=== PATIENT | male | born 1940 | race Caucasian/White ===

== ENCOUNTER → 2019-03-28 19:37 | Emergency (ER) | payer MEDICARE ==
[2019-03-28 19:47] VITALS: BP 150/86
--- NOTE | 2019-03-28 20:21 | ED ---
Skin Complaint - HPI Summary HPI Summary: 78 yo male presents to [facility] with tick bite to left nipple. He tells me that he is confident the tick was not attached this morning. [place] has been working outdoors a lot today, thinks that is when he acquired the tick. He tried to remove it at home, but a piece of the tick remained embedded within the skin. He is concerned about lyme disease. Says the tick was not engorged. He has not other complaints at this time. - History of Current Complaint Chief Complaint: EDGeneral Time Seen by Provider: 03/28/19 20:15 Stated Complaint: TICK ON LEFT BREAST PER PT Hx Obtained From: Patient Timing: Constant Onset Severity: Mild Current Severity: Mild Pain Intensity: 3 Pain Scale Used: 0-10 Numeric - Allergy/Home Medications Allergies/Adverse Reactions: Allergies Allergy/AdvReac Type Severity Reaction Status Date / Time Sulfa (Sulfonamide Allergy Unknown Verified 03/28/19 19:47 Antibiotics) Reaction Details PMH/Surg Hx/FS Hx/Imm Hx Cardiovascular History: Reports: Hx Hypertension Respiratory History: Reports: Hx Chronic Obstructive Pulmonary Disease (COPD) Infectious Disease History: No Infectious Disease History: Denies: Traveled Outside the [place] in Last 30 Days - Family History Known Family History: Positive: Unknown - Social History Occupation: Retired Lives: With Family Alcohol Use: Occasionally Substance Use Type: Reports: None Smoking Status (MU): Heavy Every Day Tobacco Smoker Type: Cigarettes Review of Systems Constitutional: Negative Cardiovascular: Negative Respiratory: Negative Skin: Other - Tick bite left nipple Neurological: Negative Psychological: Normal All Other Systems Reviewed And Are Negative: Yes Physical Exam - Summary Physical Exam Summary: GENERAL: NAD. WDWN. No pain distress. SKIN: LEFT NIPPLE: 1 o'clock position there is a 3mm diameter of mild erythema and edema with central 1mm area of superficial skin loss. No streaking, bleeding , or drainage. CHEST: No accessory muscle use. Breathing comfortably and in no distress. CV: Pulses intact. Cap refill <2seconds NEURO: Alert. PSYCH: Age appropriate behavior. Triage Information Reviewed: Yes Vital Signs On Initial Exam: Initial Vitals Temp Pulse Resp BP Pulse Ox 97.7 F 84 16 150/86 97 03/28/19 19:40 03/28/19 19:40 03/28/19 19:40 03/28/19 19:40 03/28/19 19:40 Vital Signs Reviewed: Yes Diagnostics - Vital Signs Vital Signs Temp Pulse Resp BP Pulse Ox 03/28/19 19:40 97.7 F 84 16 150/86 97 - Laboratory Lab Statement: Any lab studies that have been ordered have been reviewed, and results considered in the medical decision making process. Course/Dx - Course Course Of Treatment: Educated pt about ticks and lyme disease. There is a pin- point tick part embedded within the skin. Advised against "digging" for this as attempting to remove this part will likely create more risk for infection/ injury and the piece will not cause any harm/lyme. - Diagnoses Provider Diagnoses: Tick bite Discharge - Sign-Out/Discharge Documenting (check all that apply): Patient Departure Patient Received Moderate/Deep Sedation with Procedure: No - Discharge Plan Condition: Stable Disposition: HOME Patient Education Materials: Lyme Disease (ED), Tick Bite (ED) Referrals: Peter Hernandez MD [Primary Care Provider] - Additional Instructions: If you develop a fever, shortness of breath, chest pain, new or worsening symptoms - please call your PCP or go to the ED immediately. Your blood pressure was high at todays visit. Please see your primary provider within 4 weeks for recheck and re-evaluation. TICK BITE: You have been bitten by a tick. Once the tick is removed, these "bites" usually cause no problems. Tick fever, tick paralysis, [place] Spotted fever, and Lyme disease are uncommon -- but you should mention this tick bite to your doctor if you develop unusual symptoms in the next several weeks. If you develop any of the following, please see your physician promptly: (1) Fever, chills, or generalized malaise associated with a headache. (2) A red round area at the site of the bite (or elsewhere) (3) Joint pain, joint swelling or generalized weakness. (4) Redness, swelling, or drainage at the site of the bite. - Billing Disposition and Condition Condition: STABLE Disposition: Home
== END | disposition home or self-care (01) ==
LOC: ED 19:37
DX: S20.162A Insect bite (nonvenomous) of breast, left breast, initial encounter (principal); W57.XXXA Bitten or stung by nonvenomous insect and other nonvenomous arthropods, initial encounter; Y92.9 Unspecified place or not applicable; Z88.2 Allergy status to sulfonamides; I10 Essential (primary) hypertension; J44.9 Chronic obstructive pulmonary disease, unspecified; F17.210 Nicotine dependence, cigarettes, uncomplicated
CPT/HCPCS: 99281

== ENCOUNTER 2024-09-11 09:57 | Inpatient (IN) ==
[2024-09-11 10:53] LABS: ABS Basophils 0.1 10^3/uL (0.0-0.1); ABS Eosinophils 0.1 10^3/uL (0.0-0.5); ABS Lymphocytes 1.4 10^3/uL (1.0-4.8); ABS Monocytes 0.5 10^3/uL (0.0-1.1); ABS Neutrophils 3.6 10^3/uL (1.5-7.6); ABS Nucleated RBC 0.01 10^3/ul; Eosinophil % 2.4 %; Hematocrit 44.3 % (38-53); Hemoglobin 14.7 g/dL (13.2-16.3); Lymphocyte % 24.7 %; Mean Corpuscular Hemoglobin 29.5 pg (27-33); Mean Corpuscular Hgb Conc 33.2 g/dL (31-36); Mean Platelet Volume 9.1 fL (7.5-11.2); Nucleated Red Blood Cells % 0.2 %/100WBC (0.0-0.8); Platelet Count 200 10^3/uL (150-450); Red Blood Count 4.97 10^6/uL (4.06-5.63); Red Cell Distribution Width 14.2 % (12-17); White Blood Count 5.7 10^3/uL (3.6-10.2)
[2024-09-11 11:02] LABS: INR 1.25 (0.85-1.14)
[2024-09-11 11:27] LABS: Albumin 4.1 g/dL (3.2-5.2); Albumin/Globulin Ratio 1.8 (1-3); C Reactive Protein 1.17 mg/L (<8.01); Calcium 9.1 mg/dL (8.6-10.3); Creatinine, Serum 0.84 mg/dL (0.67-1.17); Globulin 2.3 g/dL (2-4); Potassium 4.4 mmol/L (3.5-5.0); Total Bilirubin 0.6 mg/dL (0.2-1.0); Total Protein 6.4 g/dL (6.4-8.9); eGFR CKD-EPI 87.1 (>60)
[2024-09-11] MEDS ORDERED: EPINEPHrine SYR 0.1MG/ML 10 ml SYRINGE IV ONE (11:58)
[2024-09-11 12:07] LABS: High Sensitivity Troponin 1 Hr 3 pg/mL (<20)
[2024-09-11] MEDS: DOPamine 800 MG/250 ML IVPREMX 800 MG/250 ML ML CENTR SCH (12:12)
[2024-09-11] MEDS: Ondansetron 4 mg VIAL 2 MG/ML 2 ml VIAL IV ONE (13:42)
[2024-09-11 13:47] LABS: Magnesium 1.7 mg/dL (1.9-2.7)
[2024-09-11] MEDS ORDERED: Lidocaine 1% VIAL 10 MG/ML 30 ML VIAL ONE (14:13)
[2024-09-11] MEDS ORDERED: Heparin 2 UNITS/ML IVPREMIX 1,000 UNIT/500 ML BAG IV ONE (14:14)
[2024-09-11] MEDS ORDERED: fentaNYL 100 mcg/2 ml 50 MCG/ML VIAL ONE (14:14)
[2024-09-11] MEDS ORDERED: Midazolam 5 mg/5 ml VIAL 1 mg/ml 5 ml VIAL (5 mg) ONE (14:14)
[2024-09-11 14:51] LABS: TSH Ultra Thyroid Stim Horm 3.86 mcIU/mL (0.34-5.60)
[2024-09-11 14:55] LABS: Free T4 0.78 ng/dL (0.61-1.12)
[2024-09-11] MEDS: Magnesium Sulfate 2 gm BAG 2 GM/50 ML BAG IVPB ONE (15:30)
[2024-09-11] MEDS: Enoxaparin 40 MG/0.4 ML SYR SUBCUT ONE (15:30)
[2024-09-11] MEDS: Sulfur Hexaflouride MICROSPHR 25 MG VIAL IV PRN (16:00)
[2024-09-11] MEDS: cefTRIAXone 1 gm/50 mL D5W 1 GM/50 ML BAG IV SCH (17:07)
[2024-09-11] MEDS: ceFAZolin 2 GM PREMIX 2 GM/50 ML BAG IV ONE (17:47)
[2024-09-11] MEDS: Magnesium Sulfate IV 1GM/100ML 1 GM/100 ML BAG IV ONE (17:47)
[2024-09-11] MEDS: Bacitracin OINTMENT TUBE TOPICAL SCH (18:26)
[2024-09-12] MEDS: NS 0.9% 1000 ml BAG 1,000 ML IV SCH (04:00)
[2024-09-12 04:47] LABS: Hematocrit 34.6 % (38-53); Hemoglobin 11.6 g/dL (13.2-16.3); Mean Corpuscular Hemoglobin 29.6 pg (27-33); Mean Corpuscular Hgb Conc 33.5 g/dL (31-36); Mean Corpuscular Volume 88.5 fL (80-97); Mean Platelet Volume 8.7 fL (7.5-11.2); Platelet Count 165 10^3/uL (150-450); Red Blood Count 3.91 10^6/uL (4.06-5.63); Red Cell Distribution Width 13.9 % (12-17)
[2024-09-12 04:50] LABS: INR 1.39 (0.85-1.14)
[2024-09-12 06:40] LABS: Calcium 7.4 mg/dL (8.6-10.3); Creatinine, Serum 0.6 mg/dL (0.67-1.17); Magnesium 1.7 mg/dL (1.9-2.7); Potassium 3.5 mmol/L (3.5-5.0); eGFR CKD-EPI 96.4 (>60)
[2024-09-12] MEDS: Magnesium Sulfate 2 gm BAG 2 GM/50 ML BAG IVPB ONE (06:54)
[2024-09-12] MEDS ORDERED: ceFAZolin 2 GM PREMIX 2 GM/50 ML BAG ONE (07:11)
[2024-09-12] MEDS ORDERED: Flumazenil 0.5 mg/5 ml 0.1 MG/ML 5 ml VIAL ONE (07:15)
[2024-09-12] MEDS ORDERED: fentaNYL 100 mcg/2 ml 50 MCG/ML VIAL ONE (07:15)
[2024-09-12] MEDS ORDERED: Midazolam 5 mg/5 ml VIAL 1 mg/ml 5 ml VIAL (5 mg) ONE (07:15)
[2024-09-12] MEDS ORDERED: Naloxone 0.4 mg VIAL 0.4 mg/ml 1 ml VIAL ONE (07:15)
[2024-09-12] MEDS ORDERED: Lidocaine 1% VIAL 10 MG/ML 30 ML VIAL ONE (07:16)
[2024-09-12] MEDS ORDERED: Iohexol 300 (CONTRAST) 10 ML SDV ONE (07:16)
[2024-09-12] MEDS: KCL 20 MEQ/100 ML IVPREMIX 20 MEQ/100 ML BAG IV SCH (07:17)
[2024-09-12] MEDS: ceFAZolin 2 GM PREMIX 2 GM/50 ML BAG IV ONE (08:10)
[2024-09-12] MEDS: fentaNYL 100 mcg/2 ml 50 MCG/ML VIAL IV SLOW PU ONE (13:24)
[2024-09-12] MEDS: Midazolam 10 mg/10 ml VIAL 1 mg/ml 10 ml VIAL (10 mg) IV SLOW PU ONE (13:24)
[2024-09-12] MEDS: ceFAZolin VIAL 1 GM in NS 0.9% 50 ML 50 ML IVPB SCH (16:24)
[2024-09-13 05:25] LABS: ABS Eosinophils 0.1 10^3/uL (0.0-0.5); ABS Lymphocytes 1.1 10^3/uL (1.0-4.8); ABS Monocytes 0.6 10^3/uL (0.0-1.1); ABS Neutrophils 5.8 10^3/uL (1.5-7.6); ABS Nucleated RBC 0.02 10^3/ul; Eosinophil % 1.2 %; Hematocrit 42.8 % (38-53); Hemoglobin 13.9 g/dL (13.2-16.3); Lymphocyte % 14.5 %; Mean Corpuscular Hemoglobin 30.6 pg (27-33); Mean Corpuscular Hgb Conc 32.6 g/dL (31-36); Mean Corpuscular Volume 93.9 fL (80-97); Mean Platelet Volume 8.9 fL (7.5-11.2); Nucleated Red Blood Cells % 0.2 %/100WBC (0.0-0.8); Platelet Count 145 10^3/uL (150-450); Red Blood Count 4.56 10^6/uL (4.06-5.63); Red Cell Distribution Width 14.5 % (12-17); White Blood Count 7.6 10^3/uL (3.6-10.2)
[2024-09-13 05:57] LABS: Calcium 8.6 mg/dL (8.6-10.3); Creatinine, Serum 0.77 mg/dL (0.67-1.17); Magnesium 1.9 mg/dL (1.9-2.7); Phosphorus 2.1 mg/dL (2.5-5.0); Potassium 4.5 mmol/L (3.5-5.0); eGFR CKD-EPI 89.4 (>60)
[2024-09-13] MEDS: Magnesium Sulfate 2 gm BAG 2 GM/50 ML BAG IVPB ONE (06:24)
[2024-09-13] MEDS: Potassium Chlor 20 meq TAB.ER PO SCH (08:28)
[2024-09-13 14:53] LABS: HDL Cholesterol 45.9 mg/dL
[2024-09-14 04:56] LABS: ABS Basophils 0.1 10^3/uL (0.0-0.1); ABS Eosinophils 0.1 10^3/uL (0.0-0.5); ABS Lymphocytes 1.2 10^3/uL (1.0-4.8); ABS Monocytes 0.7 10^3/uL (0.0-1.1); ABS Neutrophils 6.6 10^3/uL (1.5-7.6); Eosinophil % 1.5 %; Hematocrit 38.5 % (38-53); Lymphocyte % 13.9 %; Mean Corpuscular Hemoglobin 29.4 pg (27-33); Mean Corpuscular Hgb Conc 33.9 g/dL (31-36); Mean Corpuscular Volume 86.8 fL (80-97); Mean Platelet Volume 8.9 fL (7.5-11.2); Platelet Count 161 10^3/uL (150-450); Red Blood Count 4.44 10^6/uL (4.06-5.63); Red Cell Distribution Width 13.8 % (12-17); White Blood Count 8.6 10^3/uL (3.6-10.2)
[2024-09-14] MEDS: Enoxaparin 40 MG/0.4 ML SYR SUBCUT SCH (12:53)
[2024-09-15 11:53] LABS: ABS Basophils 0.1 10^3/uL (0.0-0.1); ABS Eosinophils 0.2 10^3/uL (0.0-0.5); ABS Lymphocytes 1.2 10^3/uL (1.0-4.8); ABS Monocytes 0.5 10^3/uL (0.0-1.1); ABS Neutrophils 5.7 10^3/uL (1.5-7.6); Hemoglobin 14.2 g/dL (13.2-16.3); Lymphocyte % 15.5 %; Mean Corpuscular Hemoglobin 30.1 pg (27-33); Mean Corpuscular Hgb Conc 34.7 g/dL (31-36); Mean Corpuscular Volume 86.9 fL (80-97); Mean Platelet Volume 8.6 fL (7.5-11.2); Platelet Count 179 10^3/uL (150-450); Red Blood Count 4.72 10^6/uL (4.06-5.63); Red Cell Distribution Width 13.7 % (12-17); White Blood Count 7.7 10^3/uL (3.6-10.2)
[2024-09-15 12:32] LABS: Calcium 9.5 mg/dL (8.6-10.3); Creatinine, Serum 0.59 mg/dL (0.67-1.17); Magnesium 1.7 mg/dL (1.9-2.7); Phosphorus 2.5 mg/dL (2.5-5.0); Potassium 3.8 mmol/L (3.5-5.0); eGFR CKD-EPI 96.9 (>60)
[2024-09-15] MEDS: Magnesium Sulfate 2 gm BAG 2 GM/50 ML BAG IVPB ONE (17:41)
[2024-09-17 17:02] LABS: Rapid COVID-19 Molecular Undetected (Undetected)
[2024-09-18 10:08] VITALS: BP 110/79
== END 2024-09-18 14:10 | DRG 242 ==
LOC: ED 09:57 → SUATTDRO 13:46 → EDHOLD 13:46 → ICU 14:20 → MED 09-15 02:44
PROVIDERS: ADMIT Internal Medicine Pulmonary Disease; ATTEND Internal Medicine